=== PATIENT | female | born 1970 | race Hispanic/Latino ===

== ENCOUNTER 2022-01-13 17:36 | Emergency (ER) | payer OTHER ==
[~2022-01-13] VITALS: Ht 154.9 cm; Wt 90.7 kg
[2022-01-13 17:41] VITALS: BP 153/73
[2022-01-13] MEDS ORDERED: CYCLOBENZAPRINE HCL 10 MG TABLET PO ONE (18:00)
[2022-01-13] MEDS ORDERED: GABAPENTIN 300 MG CAPSULE PO SCH (18:00)
[2022-01-13 18:09] LABS: BASOPHILS % (AUTO) 0.2 % (0.0-5.0); HEMATOCRIT 36.9 % (36-48); LYMPHOCYTES % (AUTO) 15.4 % (21.0-51.0); MEAN CORPUSCULAR HEMOGLOBIN 30.6 pg (27.0-33.0); MEAN CORPUSCULAR HGB CONC 32.8 g/dL (32.0-36.0); MEAN CORPUSCULAR VOLUME 93.4 fL (79-99); MONOCYTES % (AUTO) 8.3 % (3.0-13.0); NEUTROPHILS % (AUTO) 75.7 % (40.0-77.0); PLATELET COUNT (AUTO) 243 K/uL (130-400); RED BLOOD CELL COUNT(AUTO) 3.95 MIL/uL (4.00-5.50); RED CELL DISTRIBUTION WIDTH 13.7 % (11.0-15.5); WHITE BLOOD COUNT (AUTO) 5.5 K/uL (4.8-10.8)
[2022-01-13 18:25] LABS: CARBON DIOXIDE 26 mmol/L (21-32); CHLORIDE 105 mmol/L (101-111); CREATININE 0.9 mg/dL (0.5-1.5); GLOMERULAR FILTR. RATE CALC 70 mL/min (>60); GLUCOSE,RANDOM 177 mg/dL (70-105); POTASSIUM 3.8 mmol/L (3.5-5.1); SODIUM SERUM 140 mmol/L (136-145); UREA NITROGEN, BLOOD 16 mg/dL (7-18)
[2022-01-13 18:32] LABS: ALANINE AMINOTRANSFERASE 30 U/L (12-78); ALBUMIN 3.3 g/dL (3.5-5.0); ASPARTATE AMINOTRANSFERASE 21 U/L (10-37); CREATINE KINASE, TOTAL 307 U/L (21-232); TOTAL PROTEIN, SERUM 7.5 g/dL (6.0-8.3)
[2022-01-13 18:33] LABS: CRP QUANTITATIVE < 2.00 mg/L (0.00-9.0)
[2022-01-13 18:37] LABS: APPEARANCE,URINE CLEAR (CLEAR); BILIRUBIN,URINE NEGATIVE (NEGATIVE); COLOR,URINE YELLOW (YELLOW); GLUCOSE, URINE (UA) 250 mg/dL (NEGATIVE); KETONES,URINE NEGATIVE (NEGATIVE); LEUKOCYTE ESTERASE ,URINE NEGATIVE (NEGATIVE); NITRATE,URINE NEGATIVE (NEGATIVE); OCCULT BLOOD,URINE TRACE-INTACT (NEGATIVE); PROTEIN,URINE 30 mg/dL (NEGATIVE); UROBILINOGEN,URINE 0.2 mg/dL (0.2-1.0)
[2022-01-13 18:44] LABS: BACTERIA,URINE Moderate /HPF (None Seen); RBC,URINE 0-1 /HPF (0-1); SQUAMOUS EPITHELIAL CELL,UR Few /HPF (0-2)
[2022-01-13 18:45] LABS: MUCUS,URINE Rare LPF (None Seen)
[2022-01-13] MEDS ORDERED: 0.9%NACL 1000ML 1,000 ML IV SCH (19:00)
[2022-01-13] MEDS ORDERED: CEFTRIAXONE 1G VIAL IVP ONE (19:00)
[2022-01-13] MEDS ORDERED: CEPH500B PO (19:27)
[2022-01-13] MEDS ORDERED: GABA300C PO (19:27)
== END 2022-01-13 20:45 | disposition home or self-care (01) ==
LOC: EDH 17:36
DX: N39.0 Urinary tract infection, site not specified (principal); E11.65 Type 2 diabetes mellitus with hyperglycemia; J45.909 Unspecified asthma, uncomplicated; E86.0 Dehydration; I10 Essential (primary) hypertension; E66.9 Obesity, unspecified; Z79.899 Other long term (current) drug therapy; Z68.37 Body mass index [BMI] 37.0-37.9, adult
CPT/HCPCS: 99283; 96374; 96361; 82550; 84484; 80053; 85025; 87077; 87088; 87186; 86140; 81001; 36415; J7030; J0696

== ENCOUNTER 2022-03-24 15:32 | Emergency (ER) | payer OTHER ==
[~2022-03-24] VITALS: Ht 162.6 cm; Wt 108.9 kg
[~2022-03-24 15:32] MED LIST: CEPH500B PO; GABA300C PO
[2022-03-24 18:14] LABS: BASOPHILS % (AUTO) 0.6 % (0.0-5.0); EOSINOPHILS % (AUTO) 0.4 % (0.0-8.0); HEMATOCRIT 37.6 % (36-48); LYMPHOCYTES % (AUTO) 24.4 % (21.0-51.0); MEAN CORPUSCULAR HEMOGLOBIN 29.9 pg (27.0-33.0); MEAN CORPUSCULAR HGB CONC 32.2 g/dL (32.0-36.0); MEAN CORPUSCULAR VOLUME 92.8 fL (79-99); MONOCYTES % (AUTO) 10.4 % (3.0-13.0); NEUTROPHILS % (AUTO) 63.8 % (40.0-77.0); PLATELET COUNT (AUTO) 230 K/uL (130-400); RED BLOOD CELL COUNT(AUTO) 4.05 MIL/uL (4.00-5.50); RED CELL DISTRIBUTION WIDTH 13.8 % (11.0-15.5); WHITE BLOOD COUNT (AUTO) 5.2 K/uL (4.8-10.8)
[2022-03-24 18:24] LABS: CREATININE 0.8 mg/dL (0.5-1.5); POTASSIUM 3.7 mmol/L (3.5-5.1)
[2022-03-24 18:30] LABS: ALBUMIN 3.2 g/dL (3.5-5.0); TOTAL PROTEIN, SERUM 7.3 g/dL (6.0-8.3)
[2022-03-24] MEDS ORDERED: MORPHINE 2 MG SYG IVP ONE (18:30)
[2022-03-24] MEDS ORDERED: 0.9%NACL 1000ML 1,000 ML IV ONE (18:30)
[2022-03-24] MEDS ORDERED: ONDANSETRON 4MG INJ IVP ONE (18:30)
[2022-03-24 18:55] LABS: APPEARANCE,URINE CLEAR (CLEAR); BILIRUBIN,URINE NEGATIVE (NEGATIVE); COLOR,URINE YELLOW (YELLOW); GLUCOSE, URINE (UA) NEGATIVE (NEGATIVE); KETONES,URINE NEGATIVE (NEGATIVE); LEUKOCYTE ESTERASE ,URINE NEGATIVE Leu/uL (NEGATIVE); NITRATE,URINE NEGATIVE (NEGATIVE); PH,URINE 5.5 (5.0-8.0); PROTEIN,URINE 10 mg/dL (NEGATIVE); UROBILINOGEN,URINE 0.2 mg/dL (0.2-1.0)
[2022-03-24 19:04] LABS: BACTERIA,URINE RARE /HPF (None Seen); MUCUS,URINE RARE LPF (None Seen); SQUAMOUS EPITHELIAL CELL,UR RARE /HPF (0-2)
[2022-03-24 19:53] VITALS: BP 135/71
== END 2022-03-24 20:24 | disposition home or self-care (01) ==
LOC: EDH 15:32
DX: R60.0 Localized edema (principal); Z20.822 Contact with and (suspected) exposure to COVID-19; E11.9 Type 2 diabetes mellitus without complications; I10 Essential (primary) hypertension; J45.909 Unspecified asthma, uncomplicated; E66.9 Obesity, unspecified; Z68.41 Body mass index [BMI] 40.0-44.9, adult
CPT/HCPCS: 36415; 80053; 81001; 85025; 93970; 96361; 96374; 96375; J2405; J7030

== ENCOUNTER 2022-10-25 16:08 | Emergency (ER) | payer BC ==
[~2022-10-25] VITALS: Ht 154.9 cm; Wt 102.1 kg
[2022-10-25] MEDS ORDERED: ACETAMINOPHEN 500 MG TABLET PO ONE (18:00)
[2022-10-25 18:55] VITALS: BP 148/70
== END 2022-10-25 20:59 | disposition home or self-care (01) ==
LOC: EDH 16:08
DX: S93.402A Sprain of unspecified ligament of left ankle, initial encounter (principal); I10 Essential (primary) hypertension; E11.9 Type 2 diabetes mellitus without complications; J45.909 Unspecified asthma, uncomplicated; X50.1XXA Overexertion from prolonged static or awkward postures, initial encounter; Y93.89 Activity, other specified; Y92.89 Other specified places as the place of occurrence of the external cause; Y99.8 Other external cause status
CPT/HCPCS: 73562; 73600; 73620

== ENCOUNTER 2023-06-20 08:59 | Emergency (ER) | payer BC ==
[~2023-06-20] VITALS: Ht 154.9 cm; Wt 104.3 kg
[~2023-06-20 08:59] MED LIST changes: +ALBUHFA IH; -CEPH500B PO; +DARU1TAB PO; +FLUT1DIS3 PO; +FURO20TA4 PO; +INSU100V52 SQ; +LISI1TAB49 PO; +METF-446 PO; +TIVICAY; +VIT D3 PO
[2023-06-20 10:34] LABS: INR <= 0.93 (0.85-1.15); PROTHROMBIN TIME 10.3 SEC (9.6-11.6)
[2023-06-20 10:36] LABS: PARTIAL THROMBOPLASTIN TIME 26.7 SEC (26.3-35.5)
[2023-06-21 04:43] VITALS: BP 132/55; PULSE 84; RESP 16; O2SAT 95
[2023-06-21] MEDS ORDERED: 0.9%NACL 10ML VIAL IV SCH (09:00)
== END 2023-06-21 04:55 | disposition home or self-care (01) ==
LOC: EDH 08:59
DX: M86.8X7 Other osteomyelitis, ankle and foot (principal); F41.9 Anxiety disorder, unspecified; J45.909 Unspecified asthma, uncomplicated; E11.9 Type 2 diabetes mellitus without complications; I10 Essential (primary) hypertension; E66.9 Obesity, unspecified; Z21 Asymptomatic human immunodeficiency virus [HIV] infection status; Z79.51 Long term (current) use of inhaled steroids; Z79.84 Long term (current) use of oral hypoglycemic drugs; Z79.899 Other long term (current) drug therapy; T82.524A Displacement of infusion catheter, initial encounter
CPT/HCPCS: 99283; 71045 ×3; 85610; 85730; 36415; C1894